=== PATIENT | male | born 2000 | race Hispanic/Latino ===

== ENCOUNTER 2020-11-23 15:23 | Emergency (ER) | payer SELFPAY ==
[~2020-11-23] VITALS: Ht 172.7 cm; Wt 59.0 kg
== END 2020-11-23 16:32 | disposition home or self-care (01) ==
LOC: ED 15:23
DX: S40.011A Contusion of right shoulder, initial encounter (principal); V00.311A Fall from snowboard, initial encounter; F17.200 Nicotine dependence, unspecified, uncomplicated
CPT/HCPCS: 73030; 99283-25